=== PATIENT | male | born 1945 | race American Indian/Alaskan Native ===

== ENCOUNTER 2016-07-20 12:59 | Emergency (ER) | payer OTHER ==
[2016-07-20 13:12] VITALS: BP 109/69; PULSE 86; RESP 16; TEMP 97.5; O2SAT 95
[2016-07-20] MEDS ORDERED: TDAP ADULT 0.5 ML INJ (BOOSTRIX) IM ONE (13:36)
--- NOTE | 2016-07-20 14:14 | EDPHY ---
H & P Time Seen by Provider: 07/20/16 13:26 HPI/ROS: CHIEF COMPLAINT: Laceration right thumb HISTORY OF PRESENT ILLNESS: 70-year-old male presents to the emergency department with a laceration to his right thumb. Patient was at work and accidentally crushed it and sustained a laceration to the right thumb. The incident happened just prior to arrival. He is right-hand dominant. He is unsure of his last tetanus shot. He is on Coumadin and had difficulty stopping the bleeding and presented to the emergency department for evaluation. ROS: Denies numbness or tingling in his fingers, retained foreign body. Past Medical/Surgical History: Atrial fibrillation, ablation Social History: and lives in [place] Smoking Status: Never smoked Physical Exam: On examination the patient has laceration through the nail. There is also a very superficial laceration to the distal, palmar aspect of the left thumb. No palpable bony tenderness. Full range of motion of his right thumb. He has normal sensation to light touch with normal 2 point discrimination. The base of the nail is intact. Full flexion and extension of the right thumb without difficulty. Constitutional: Initial Vital Signs Temperature (C) 36.4 C 07/20/16 13:06 Heart Rate 86 07/20/16 13:06 Respiratory Rate 16 07/20/16 13:06 Blood Pressure 109/69 07/20/16 13:06 O2 Sat (%) 95 07/20/16 13:06 O2 Delivery Mode Room Air Allergies/Adverse Reactions: No Known Allergies Allergy (Unverified 07/20/16 13:12) Home Medications: Medication Instructions Recorded Carvedilol 07/20/16 Digoxin 07/20/16 Gabapentin 07/20/16 Lisinopril 07/20/16 Metformin HCl 07/20/16 Synthroid 07/20/16 Warfarin Sodium 07/20/16 MDM/Departure - MDM Procedures: Laceration repair. Verbal consent was obtained from the patient. The 2 cm irregular laceration on the right thumb was anesthetized using digital block of 1% lidocaine without epinephrine 0.5% bupivacaine without epinephrine. The wound was irrigated with saline, draped and explored to its base with a gloved finger. There were no deep structures involved. No tendon injury was identified. The wound was repaired with 4 0 Ethilon, 2 sutures. The wound repair was simple. The procedure was performed by myself. Medications Given: Discontinued Medications Diphtheria/Tetanus/Acell Pertussis (Boostrix) 0.5 ml IM .ONCE ONE Stop: 07/20/16 13:37 Last Admin: 07/20/16 14:05 Dose: 0.5 ml ED Course/Re-evaluation: Patient's tetanus shot was updated. 70-year-old male with laceration to the right thumb, see procedure note. Patient will keep the wound dry, clean and protected especially while working. He was given wound care precautions. - Depart Disposition: Home, Routine, Self-Care Clinical Impression: Laceration of right thumb Qualifiers: Encounter type: initial encounter Qualified Code(s): S61.011A - Laceration without foreign body of right thumb without damage to nail, initial encounter Condition: Good Instructions: Care For Your Stitches (ED), Laceration (ED), Acute Wound Care ( ED) Additional Instructions: Wound Care Follow-Up: Removal of sutures in 7-10 days. Suture removal is complimentary in uncomplicated cases. Infection or abnormal findings would require reevaluation by the MD. In that case, you may be billed. Return if you notice any signs or symptoms of infection such as redness, swelling, increased pain, fever, purulent drainage. Your given a tetanus shot today in the emergency department. Referrals: Lloyd Saleem, [Primary Care Provider] - As per Instructions
== END 2016-07-20 14:28 | disposition home or self-care (01) ==
PROC: 0HQFXZZ Repair Right Hand Skin, External Approach (ICD-10-PCS; principal; 2016-07-20)
DX: S61.011A Laceration without foreign body of right thumb without damage to nail, initial encounter (principal); Z23 Encounter for immunization; Z79.01 Long term (current) use of anticoagulants; W23.1XXA Caught, crushed, jammed, or pinched between stationary objects, initial encounter; Y92.69 Other specified industrial and construction area as the place of occurrence of the external cause; Y99.0 Civilian activity done for income or pay; Y93.89 Activity, other specified

== ENCOUNTER 2017-03-08 17:59 | Emergency (ER) | payer OTHER ==
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
[2017-03-08 18:14] VITALS: RESP 18; O2SAT 98
[2017-03-08 18:14] LABS: % IMMATURE GRANULYOCYTES 0.6 % (0.0-1.1); ABSOLUTE IMMATURE GRANULOCYTES 0.09 10^3/uL (0.00-0.10); ADD DIFF? NO; ADD MORPH? NO; ADD SCAN? NO; ATYPICAL LYMPHOCYTE FLAG 0 (0-99); FRAGMENT RBC FLAG 0 (0-99); HEMATOCRIT 41.9 % (40.0-51.0); HEMOGLOBIN 14.9 g/dL (13.7-17.5); LEFT SHIFT FLG 0 (0-99); LIPEMIA HEMOLYSIS FLAG 90 (0-99); MEAN CELL HEMOGLOBIN 32.5 pg (27.9-34.1); MEAN CELL HEMOGLOBIN CONCENTR. 35.6 g/dL (32.4-36.7); MEAN CELL VOLUME 91.5 fL (81.5-99.8); PLATELET CLUMPS FLAG 0 (0-99); PLATELET COUNT 315 10^3/uL (150-400); RED BLOOD CELL COUNT 4.58 10^6/uL (4.40-6.38); RED CELL DISTRIBUTION WIDTH 12.9 % (11.5-15.2)
[2017-03-08 18:24] LABS: APTT 32.4 SEC (23.0-38.0); INR 2.69 (0.83-1.16); PROTIME(PATIENT) 28.9 SEC (12.0-15.0)
[2017-03-08 18:28] LABS: ANION GAP 14 mEq/L (8-16); CALCIUM 9.9 mg/dL (8.5-10.4); CARBON DIOXIDE 23 mEq/l (22-31); CHLORIDE 102 mEq/L (97-110); CREATININE 0.9 mg/dL (0.7-1.3); GLOMERULAR FILTRATION RATE > 60; GLUCOSE 193 mg/dL (70-100); SODIUM 139 mEq/L (134-144)
[2017-03-08] MEDS ORDERED: IOPAMIDOL (ISOVUE-300) 100 ML BTL ONE (19:12)
[2017-03-08 20:23] VITALS: BP 138/106; PULSE 98; TEMP 97.9
== END 2017-03-08 20:47 | disposition home or self-care (01) ==
LOC: EDUNIT#
DX: S20.211A Contusion of right front wall of thorax, initial encounter (principal); S00.83XA Contusion of other part of head, initial encounter; S00.03XA Contusion of scalp, initial encounter; Y04.0XXA Assault by unarmed brawl or fight, initial encounter; E11.9 Type 2 diabetes mellitus without complications; Z79.01 Long term (current) use of anticoagulants; Z79.84 Long term (current) use of oral hypoglycemic drugs
CPT/HCPCS: 70450; 71260; 99285; Q9967; 82947-QW

== ENCOUNTER 2018-02-10 12:19 | Emergency (ER) | payer OTHER ==
[2018-02-10 12:35] VITALS: BP 135/96
--- NOTE | 2018-02-10 13:13 | EDPHY ---
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 Occurred shortly prior to arrival. This was accidental. Tetanus up-to-date. PRIMARY CARE PROVIDER:Worker's compensation PHYSICAL EXAM (Prior to examination, patient consented to physical exam, hands were washed and my usual and customary physical exam procedures followed) 1) GENERAL: Well-developed, well-nourished, alert and oriented. Appears to be in no acute distress. 2) HEAD: Normocephalic 3) HEENT: sclera anicteric 4) LUNGS: Breathing comfortably. 5) SKIN: Left thumb distal phalanx superficial skin avulsion with no attached flap. Active bleeding. 6) MUSCULOSKELETAL: No signs of infection. 7) NEUROLOGIC: Full sensation and two-point discrimination Smoking Status: Never smoked Constitutional: Initial Vital Signs Temperature (C) 37 C 02/10/18 12:31 Heart Rate 79 02/10/18 12:31 Respiratory Rate 17 02/10/18 12:31 Blood Pressure 135/96 H 02/10/18 12:31 O2 Sat (%) 93 02/10/18 12:31 O2 Delivery Mode Room Air Allergies/Adverse Reactions: No Known Allergies Allergy (Verified 02/10/18 12:31) Home Medications: Medication Instructions Recorded Carvedilol 07/20/16 Digoxin 07/20/16 Gabapentin 07/20/16 Lisinopril 07/20/16 Metformin HCl 07/20/16 Synthroid 07/20/16 Warfarin Sodium 07/20/16 MDM/Departure - MDM Procedures: Procedure: Wound management. Digital nerve block of 1 % lidocaine without epinephrine placed by myself in usual and customary fashion in order to allow cleaning of the wound. Topical TXA resulting in slowing of bleeding sufficiently to apply Surgicel resulting in hemostasis. Medications Given: Discontinued Medications Tranexamic Acid (Cyklokapron) 500 mg TP EDNOW ONE Stop: 02/10/18 13:15 Last Admin: 02/10/18 13:40 Dose: Not Given ED Course/Re-evaluation: I saw this patient independently based on established practice protocols. Care of patient under supervision of secondary supervising physician Dr Olmedo . - Depart Disposition: Home, Routine, Self-Care Clinical Impression: Avulsion of skin of left thumb Qualifiers: Encounter type: initial encounter Qualified Code(s): S61.002A - Unspecified open wound of left thumb without damage to nail, initial encounter Condition: Good Instructions: Skin Avulsion (ED) Additional Instructions: Return to the ER if you develop redness, swelling, discharge, warmth to the wound, red streaks going up your arm, or any other symptoms that concern you. Stand Alone Forms: Work Comp Follow Up Referrals: Lloyd Saleem, [Primary Care Provider] - As per Instructions
[2018-02-10] MEDS ORDERED: TRANEXAMIC ACID 1,000 MG/10 ML VIAL TP ONE (13:14)
== END 2018-02-10 16:24 | disposition home or self-care (01) ==
PROC: 3E0T3BZ Introduction of Anesthetic Agent into Peripheral Nerves and Plexi, Percutaneous Approach (ICD-10-PCS; principal; 2018-02-10)
DX: S61.002A Unspecified open wound of left thumb without damage to nail, initial encounter (principal); Z79.01 Long term (current) use of anticoagulants; W26.8XXA Contact with other sharp object(s), not elsewhere classified, initial encounter; Y99.0 Civilian activity done for income or pay; Y92.511 Restaurant or cafe as the place of occurrence of the external cause; Y93.89 Activity, other specified

== ENCOUNTER 2018-02-27 09:59 | Emergency (ER) | payer OTHER ==
[2018-02-27 10:04] VITALS: BP 134/90
--- NOTE | 2018-02-27 10:13 | EDPHY ---
H & P Time Seen by Provider: 02/27/18 10:07 HPI/ROS: CHIEF COMPLAINT: Wound check left thumb HISTORY OF PRESENT ILLNESS: 72-year-old male seen emergency department on 2017 by myself after accidental work comp related skin avulsion to his left thumb. He returns today concerned that it may be infected. He has full range of motion. Denies erythema. Denies foul smell. Denies lymphangitic streaking. PHYSICAL EXAM (Prior to examination, patient consented to physical exam, hands were washed and my usual and customary physical exam procedures followed) 1) GENERAL: Well-developed, well-nourished, alert and oriented. Appears to be in no acute distress. 2) HEAD: Normocephalic 3) HEENT: sclera anicteric 4) LUNGS: Breathing comfortably. 5) SKIN: Left thumb distal phalanx skin avulsion noted with granulating tissue which is appropriate for this time.. There are no signs of infection. Negative kanavel. Full range of motion. No evidence of felon. Soft compartments. Full flexion extension at the MCP and IP No lymphangitic streaking. No foul smell. No erythema. Smoking Status: Never smoked Constitutional: Initial Vital Signs Temperature (C) 36.7 C 02/27/18 10:02 Heart Rate 81 02/27/18 10:02 Respiratory Rate 16 02/27/18 10:02 Blood Pressure 134/90 H 02/27/18 10:02 O2 Sat (%) 98 02/27/18 10:02 O2 Delivery Mode Room Air Allergies/Adverse Reactions: No Known Allergies Allergy (Verified 02/10/18 12:31) Home Medications: Medication Instructions Recorded Carvedilol 07/20/16 Digoxin 07/20/16 Gabapentin 07/20/16 Lisinopril 07/20/16 Metformin HCl 07/20/16 Synthroid 07/20/16 Warfarin Sodium 07/20/16 MDM/Departure - MDM ED Course/Re-evaluation: 10:13 a.m.: This patient's wound is granulating appropriately and shows no signs of infection, there is no erythema, no foul smell, he has full pain-free range of motion, negative kanavel sign. At this point I do not think that emergent hand surgery consultation is indicated, I do not think that antibiotics are indicated. Usual and customary wound precautions instructions provided. He feels comfortable being discharged. I saw this patient independently based on established practice protocols. Care of patient under supervision of secondary supervising physician Dr Stalin Vela . - Depart Disposition: Home, Routine, Self-Care Clinical Impression: Visit for wound check Condition: Good Instructions: Skin Avulsion (ED) Additional Instructions: Return to the ER if you develop redness, swelling, discharge, warmth to the wound, red streaks going up your arm, or any other symptoms that concern you. Stand Alone Forms: Work Comp Follow Up Referrals: Lloyd Saleem, DO [Primary Care Provider] - As per Instructions
== END 2018-02-27 10:22 | disposition home or self-care (01) ==
DX: Z48.00 Encounter for change or removal of nonsurgical wound dressing (principal)